=== PATIENT | female | born 1945 | race Caucasian/White ===

== ENCOUNTER 2022-02-18 15:22 | Inpatient (IN) ==
[2022-02-18] MEDS ORDERED: Albuterol/Ipratropium NEB.SOL (2.5/0.5 MG) 3 ML NEB.SOLN INH ONE (17:03)
[2022-02-18] MEDS ORDERED: NS 0.9% 1000 ml BAG 1,000 ML IV ONE (17:04)
[2022-02-18] MEDS ORDERED: Acetylcysteine INHALATION SOL 200 MG/ML NEB.SOLN 10 ML INH ONE (17:04)
[2022-02-18 17:19] LABS: Hematocrit 32 % (35-47); Hemoglobin 10.5 g/dL (12.0-16.0); Mean Corpuscular HGB Conc 33 g/dL (31-36); Mean Corpuscular Hemoglobin 33 pg (27-31); Mean Corpuscular Volume 101 fL (80-97); Mean Platelet Volume 7.9 fL (7.4-10.4); Platelet Count 394 10^3/uL (150-450); Red Cell Distribution Width 22 % (10-15); White Blood Count 28.5 10^3/uL (3.5-10.8)
[2022-02-18 17:30] LABS: INR 1.28 (0.88-1.18)
[2022-02-18 17:49] LABS: Albumin 4.1 g/dL (3.2-5.2); Albumin/Globulin Ratio 1.3 (1-3); C Reactive Protein 385.73 mg/L (<8.01); Calcium 9.8 mg/dL (8.6-10.3); Globulin 3.2 g/dL (2-4); Phosphorus 3.5 mg/dL (2.5-5.0); Potassium 3.9 mmol/L (3.5-5.0); Total Protein 7.3 g/dL (6.4-8.9); eGFR CKD-EPI 89.9 (>60)
[2022-02-18 17:58] LABS: Macrocytosis 1+
[2022-02-18 17:59] LABS: Anisocytosis 2+
[2022-02-18 18:15] LABS: ABS Basophils 0.1 10^3/ul (0-0.2); ABS Lymphocytes 0.8 10^3/ul (1.0-4.8); ABS Monocytes 1.3 10^3/ul (0-0.8); ABS Neutrophils 26.3 10^3/ul (1.5-7.7); ABS Nucleated RBC 0.1 10^3/ul; Basophilic Stippling 1+; Lymphocyte % 2.8 %; Nucleated Red Blood Cells % 0.2; Polychromasia 1+
[2022-02-18] MEDS ORDERED: Acetylcysteine INH SOL (RT) 200 MG/ML 4 ML VIAL INH ONE (18:17)
[2022-02-18] MEDS ORDERED: Ondansetron 4 mg VIAL 2 MG/ML 2 ml VIAL IV PRN (18:29)
[2022-02-18] MEDS ORDERED: Albuterol 2.5mg/3 ml (0.083%) NEB.SOLN INH PRN (18:32)
[2022-02-18] MEDS ORDERED: Iohexol 350 (CONTRAST) 500 ML MDV IV ONE (18:38)
[2022-02-18 18:57] LABS: High Sensitivity Troponin 1 Hr 172 pg/mL (<15)
[2022-02-18] MEDS: cefTRIAXone 1 gm/50 mL D5W 1 GM/50 ML BAG IV SCH (19:14)
[2022-02-18] MEDS: Enoxaparin 40 MG/0.4 ML SYR SUBCUT SCH (19:15)
[2022-02-18 19:26] LABS: Ferritin 580.4 ng/mL (11-307)
[2022-02-18 19:29] LABS: Folate 3.4 ng/mL (5.90-24.80)
[2022-02-18] MEDS: DOXYcycline 100 MG in NS 0.9% 250 ml 250 ML IVPB SCH (20:53)
[2022-02-18 23:46] LABS: Urine Appearance Clear; Urine Bilirubin Negative (Negative); Urine Blood 2+ (Negative); Urine Color Amber; Urine Glucose Negative (Negative); Urine Ketones Negative (Negative); Urine Nitrite Negative (Negative); Urine Protein 2+(100 mg/dL) (Negative); Urine Urobilinogen Positive (Negative)
[2022-02-19 00:11] LABS: Urine Specific Gravity > 1.060 (1.002-1.030)
[2022-02-19 00:28] LABS: Urine Bacteria Absent (Absent); Urine Red Blood Cell 2+(6-10/hpf) (Absent); Urine Squamous Epithelial Cell Present (Absent); Urine White Blood Cell Absent (Absent)
[2022-02-19 06:16] LABS: Hematocrit 27 % (35-47); Mean Corpuscular HGB Conc 33 g/dL (31-36); Mean Corpuscular Hemoglobin 33 pg (27-31); Mean Corpuscular Volume 101 fL (80-97); Mean Platelet Volume 8.1 fL (7.4-10.4); Platelet Count 328 10^3/uL (150-450); Red Blood Count 2.69 10^6 /uL (3.70-4.87); Red Cell Distribution Width 21 % (10-15); White Blood Count 21.5 10^3/uL (3.5-10.8)
[2022-02-19 06:38] LABS: Calcium 8.8 mg/dL (8.6-10.3); Magnesium 1.8 mg/dL (1.9-2.7); Potassium 3.7 mmol/L (3.5-5.0); eGFR CKD-EPI 93.3 (>60)
[2022-02-19 07:59] LABS: ABS Basophils 0.1 10^3/ul (0-0.2); ABS Monocytes 1.2 10^3/ul (0-0.8); ABS Neutrophils 19.2 10^3/ul (1.5-7.7); ABS Nucleated RBC 0.1 10^3/ul; Lymphocyte % 4.5 %; Nucleated Red Blood Cells % 0.2
[2022-02-19] MEDS: DOXYcycline 100 MG in NS 0.9% 250 ml 250 ML IVPB SCH ×2 (08:33→21:15)
[2022-02-19] MEDS ORDERED: Albuterol/Ipratropium NEB.SOL (2.5/0.5 MG) 3 ML NEB.SOLN INH PRN (12:58)
[2022-02-19] MEDS: methylPREDNISolone SOD SUCC 40 mg/ml 1 ml VIAL IV SCH (13:35)
[2022-02-19] MEDS: Albuterol/Ipratropium NEB.SOL (2.5/0.5 MG) 3 ML NEB.SOLN INH SCH ×3 (15:56→23:37)
[2022-02-19] MEDS ORDERED: Furosemide 20 mg/2 ml IV VIAL IV ONE (17:12)
[2022-02-19] MEDS: cefTRIAXone 1 gm/50 mL D5W 1 GM/50 ML BAG IV SCH (18:31)
[2022-02-19] MEDS: Mometasone/Formoter 100/5 MDI INH SCH ×2 (18:51→19:18)
[2022-02-19] MEDS: Enoxaparin 40 MG/0.4 ML SYR SUBCUT SCH (19:43)
[2022-02-20] MEDS: methylPREDNISolone SOD SUCC 40 mg/ml 1 ml VIAL IV SCH ×2 (00:39→17:17)
[2022-02-20] MEDS: Albuterol/Ipratropium NEB.SOL (2.5/0.5 MG) 3 ML NEB.SOLN INH SCH ×4 (03:10→19:05)
[2022-02-20 03:43] LABS: Hematocrit 25 % (35-47); Hemoglobin 8.2 g/dL (12.0-16.0); Mean Corpuscular HGB Conc 33 g/dL (31-36); Mean Corpuscular Hemoglobin 33 pg (27-31); Mean Corpuscular Volume 100 fL (80-97); Mean Platelet Volume 8.1 fL (7.4-10.4); Platelet Count 315 10^3/uL (150-450); Red Blood Count 2.52 10^6 /uL (3.70-4.87); Red Cell Distribution Width 21 % (10-15); White Blood Count 9.7 10^3/uL (3.5-10.8)
[2022-02-20 03:56] LABS: ABS Basophils 0.1 10^3/ul (0-0.2); ABS Lymphocytes 0.5 10^3/ul (1.0-4.8); ABS Monocytes 0.4 10^3/ul (0-0.8); ABS Neutrophils 8.7 10^3/ul (1.5-7.7); ABS Nucleated RBC 0.1 10^3/ul; Lymphocyte % 5.3 %; Nucleated Red Blood Cells % 0.7
[2022-02-20 04:26] LABS: Calcium 8.9 mg/dL (8.6-10.3); Magnesium 1.9 mg/dL (1.9-2.7); Potassium 3.9 mmol/L (3.5-5.0); eGFR CKD-EPI 94.5 (>60)
[2022-02-20] MEDS ORDERED: Magnesium Sulfate 2 gm BAG 2 GM/50 ML BAG IVPB ONE (06:53)
[2022-02-20] MEDS ORDERED: Potassium Chlor 20 meq TAB.ER PO ONE (06:53)
[2022-02-20] MEDS: Mometasone/Formoter 100/5 MDI INH SCH ×2 (07:07→19:05)
[2022-02-20 07:28] LABS: Corrected Retic Count 0.9 % (0.5-1.5); Hematocrit for Retic CNT 26 % (35-47); Immature Retic Fraction 0.45
[2022-02-20 08:03] LABS: Ferritin 496.3 ng/mL (11-307)
[2022-02-20 08:06] LABS: Folate 3.82 ng/mL (5.90-24.80)
[2022-02-20] MEDS ORDERED: Hydrocortisone 0.5% OINT 1 TUBE TOPICAL PRN (08:48)
[2022-02-20] MEDS ORDERED: HYDROCORTISONE 0.5% TOPICAL PRN (09:26)
[2022-02-20] MEDS: DOXYcycline 100 MG in NS 0.9% 250 ml 250 ML IVPB SCH ×2 (10:45→21:59)
[2022-02-20 14:26] LABS: Hematocrit 28 % (35-47); Hemoglobin 8.8 g/dL (12.0-16.0)
[2022-02-20] MEDS: cefTRIAXone 1 gm/50 mL D5W 1 GM/50 ML BAG IV SCH ×2 (17:17→18:06)
[2022-02-21] MEDS: methylPREDNISolone SOD SUCC 40 mg/ml 1 ml VIAL IV SCH ×2 (02:01→12:47)
[2022-02-21] MEDS ORDERED: Benzocaine/Menthol LOZ PO PRN ×2 (02:32→23:30)
[2022-02-21 06:58] LABS: Hematocrit 25 % (35-47); Hemoglobin 8.3 g/dL (12.0-16.0); Mean Corpuscular HGB Conc 33 g/dL (31-36); Mean Corpuscular Hemoglobin 33 pg (27-31); Mean Corpuscular Volume 101 fL (80-97); Mean Platelet Volume 7.8 fL (7.4-10.4); Platelet Count 321 10^3/uL (150-450); Red Blood Count 2.49 10^6 /uL (3.70-4.87); Red Cell Distribution Width 22 % (10-15); White Blood Count 9.8 10^3/uL (3.5-10.8)
[2022-02-21 07:29] LABS: Calcium 9.1 mg/dL (8.6-10.3); Magnesium 2.3 mg/dL (1.9-2.7); Potassium 4.6 mmol/L (3.5-5.0); eGFR CKD-EPI 89.6 (>60)
[2022-02-21] MEDS: Mometasone/Formoter 100/5 MDI INH SCH ×2 (07:45→21:30)
[2022-02-21] MEDS: Albuterol/Ipratropium NEB.SOL (2.5/0.5 MG) 3 ML NEB.SOLN INH SCH ×2 (07:46→15:35)
[2022-02-21 08:37] LABS: Hypochromasia 2+
[2022-02-21 08:38] LABS: Anisocytosis 2+; Stomatocytes 1+
[2022-02-21 08:39] LABS: ABS Basophils 0.1 10^3/ul (0-0.2); ABS Lymphocytes 0.9 10^3/ul (1.0-4.8); ABS Monocytes 0.6 10^3/ul (0-0.8); ABS Neutrophils 8.3 10^3/ul (1.5-7.7); Eosinophil % 0.1 %; Lymphocyte % 8.9 %; Nucleated Red Blood Cells % 0.4
[2022-02-21] MEDS: DOXYcycline 100 MG in NS 0.9% 250 ml 250 ML IVPB SCH (08:53)
[2022-02-21] MEDS ORDERED: Albuterol/Ipratropium NEB.SOL (2.5/0.5 MG) 3 ML NEB.SOLN INH PRN (16:08)
[2022-02-21] MEDS: cefTRIAXone 1 gm/50 mL D5W 1 GM/50 ML BAG IV SCH (17:58)
[2022-02-22 06:42] LABS: Hematocrit 27 % (35-47); Hemoglobin 8.4 g/dL (12.0-16.0); Mean Corpuscular HGB Conc 31 g/dL (31-36); Mean Corpuscular Hemoglobin 32 pg (27-31); Mean Corpuscular Volume 102 fL (80-97); Platelet Count 343 10^3/uL (150-450); Red Blood Count 2.65 10^6 /uL (3.70-4.87); Red Cell Distribution Width 22 % (10-15); White Blood Count 15.7 10^3/uL (3.5-10.8)
[2022-02-22 07:05] LABS: Calcium 9.1 mg/dL (8.6-10.3); Potassium 4.3 mmol/L (3.5-5.0)
[2022-02-22 07:10] LABS: eGFR CKD-EPI 89.9 (>60)
[2022-02-22] MEDS: Mometasone/Formoter 100/5 MDI INH SCH ×2 (07:42→19:22)
[2022-02-22 08:09] LABS: Hypochromasia 1+; Macrocytosis 1+
[2022-02-22 08:10] LABS: Anisocytosis 2+; Basophilic Stippling 1+; Polychromasia 1+
[2022-02-22 08:11] LABS: ABS Basophils 0.1 10^3/ul (0-0.2); ABS Eosinophils 0.3 10^3/ul (0-0.6); ABS Monocytes 1.3 10^3/ul (0-0.8); ABS Nucleated RBC 0.1 10^3/ul; Eosinophil % 1.9 %; Lymphocyte % 19.3 %; Nucleated Red Blood Cells % 0.8
[2022-02-22 12:06] LABS: Magnesium 2.2 mg/dL (1.9-2.7)
[2022-02-22] MEDS ORDERED: Furosemide 20 mg/2 ml IV VIAL IV SLOW PU ONE (15:43)
[2022-02-22] MEDS ORDERED: Enoxaparin 40 MG/0.4 ML SYR SUBCUT SCH (16:00)
[2022-02-22] MEDS: Potassium Chlor 20 meq TAB.ER PO SCH ×2 (16:42→21:17)
[2022-02-22] MEDS ORDERED: Azithromycin 500 mg/250 ml NS 500 MG/250 ML BAG IVPB SCH (18:00)
[2022-02-22] MEDS: cefTRIAXone 1 gm/50 mL D5W 1 GM/50 ML BAG IV SCH (18:12)
[2022-02-23] MEDS: Mometasone/Formoter 100/5 MDI INH SCH (11:48)
[2022-02-23 12:08] VITALS: BP 142/60
[2022-02-25 11:10] LABS: Methylmalonic Acid 0.27 nmol/mL (<=0.40)
== END 2022-02-23 14:10 | disposition home or self-care (01) | DRG 871 ==
LOC: ED 15:22 → SUATTDRO 18:29 → EDHOLD 18:29 → MEDTELE 23:16 → ICU 02-19 16:03 → MEDTELE 02-20 10:16
PROVIDERS: ADMIT Internal Medicine; ATTEND Internal Medicine